=== PATIENT | female | born 1950 | race Caucasian/White ===

== ENCOUNTER 2017-04-30 17:12 | Emergency (ER) | payer MEDICARE, OTHER ==
[~2017-04-30 17:12] MED LIST: Lidocaine 2% with EPINEPHrine 1:100,000 20 ML MDV INFILT ONE
[2017-04-30 17:40] VITALS: BP 126/74
[2017-04-30] MEDS ORDERED: Diphtheria,Pertussis(Acell),Tetanus Vaccine 0.5 ML SDV IM ONE (17:45)
--- NOTE | 2017-04-30 17:53 | EDM.PDOC ---
ED HPI GENERAL MEDICAL PROBLEM - General Chief Complaint: Laceration Stated Complaint: LEFT HAND INJURY Time Seen by Provider: 04/30/17 17:35 Source of Information: Reports: Patient History Limitations: Reports: No Limitations - History of Present Illness INITIAL COMMENTS - FREE TEXT/NARRATIVE: 66 yo female was working at home with a utility knife and accidently cut her left hand resulting in bleeding that spurted from her hand. No numbness noted distal to the wound. Thinks tetanus was about 5 yrs ago. Here with . 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) Left Hand Pain Score (Numeric/FACES): 2 - Related Data Allergies Allergy/AdvReac Type Severity Reaction Status Date / Time No Known Allergies Allergy Verified 04/30/17 17:40 Home Meds: Home Meds Cetirizine [ZyrTEC] 5 mg PO DAILY 06/24/13 [History] Multivitamin with Minerals [Multiple Vitamin] 1 tab PO DAILY 06/24/13 [History] Omeprazole [Omeprazole] 20 mg PO DAILY 06/24/13 [History] Social & Family History - Alcohol Use Days Per Week of Alcohol Use: 0 - Recreational Drug Use Recreational Drug Use: No ED ROS GENERAL - Review of Systems Review Of Systems: See Below Constitutional: Reports: No Symptoms Musculoskeletal: Reports: No Symptoms Skin: Reports: Wound (L hand.) Neurological: Reports: No Symptoms Psychiatric: Reports: No Symptoms ED EXAM, SKIN/RASH Exam: See Below Exam Limited By: No Limitations General Appearance: Alert, WD/WN, No Apparent Distress Peripheral Pulses: 3+: Radial (L) Extremities: Normal Range of Motion, Other (Wound left hand). No: Mottled, Pallor, Redness Neurological: Alert, Oriented, CN II-XII Intact, Normal Cognition, No Motor/ Sensory Deficits Psychiatric: Normal Affect, Normal Mood Skin: Warm, Dry, Normal Color, No Rash, Wound/Incision (0.5 cm linear laceration near the web space of her left hand. Arteriolar bleeding noted. ) Location, Skin: Upper Extremity, Left (web space of left hand. ) Characteristics: Linear Associated features: No: Warmth, Tenderness, Induration, Inflammation Lymphatic: No Adenopathy ED SKIN PROCEDURES - Laceration/Wound Repair Left Posterior Hand Lac/Wound length In cm: 0.5 Appearance: Subcutaneous, Linear, Clean Distal NVT: No Tendon Injury, Other (no neurological impairment, but arteriolar bleeding present.) Anesthetic Type: Local Local Anesthesia - Lidocaine (Xylocaine): 2% with EPI Local Anesthetic Volume: 2cc Skin Prep: Other (surgical scrub) Closed with: Sutures Suture Size: other (5-0) Suture Type: Nylon, Interrupted Drain Placement: No Sterile Dressing Applied: Nurse Tetanus Status Addressed: Yes Complications: No Course - Vital Signs Last Recorded V/S: Last Vital Signs Temp 36.1 C 04/30/17 17:34 Pulse 71 04/30/17 17:34 Resp 14 04/30/17 17:34 BP 126/74 04/30/17 17:34 Pulse Ox 100 04/30/17 17:34 - Orders/Labs/Meds Orders: Active Orders 24 hr Category Date Time Status Vaccines to be Administered [RC] PER UNIT ROUTINE Care 04/30/17 17:45 Active Meds: Medications Discontinued Medications Generic Name Dose Route Start Last Admin Trade Name Hector PRN Reason Stop Dose Admin Diphtheria/Tetanus/Acell Pertussis 0.5 ml 04/30/17 17:45 Adacel IM 04/30/17 17:46 .ONCE ONE Departure - Departure Time of Disposition: 18:00 Disposition: Home, Self-Care 01 Condition: Good Clinical Impression: Laceration of hand Qualifiers: Encounter type: initial encounter Foreign body presence: without foreign body Laterality: left Qualified Code(s): S61.412A - Laceration without foreign body of left hand, initial encounter - Discharge Information Referrals: Alona Jama MD [Primary Care Provider] - Forms: ED Department Discharge Additional Instructions: Leave pressure dressing on for 24 hrs. Keep hand elevated above your heart. Keep wound clean for 3 days. Starting at bedtime tomorrow clean wound twice daily with soap and water. Dry. Apply Bacitracin ointment and a new dressing. Stitches out in the clinic in 9-10 days, call for an appt. Recheck sooner for signs of infection. Use acetaminophen as needed for pain relief. - My Orders Last 24 Hours: My Active Orders 04/30/17 17:45 Vaccines to be Administered [RC] PER UNIT ROUTINE - Assessment/Plan Last 24 Hours: My Active Orders 04/30/17 17:45 Vaccines to be Administered [RC] PER UNIT ROUTINE
== END 2017-04-30 18:00 | disposition home or self-care (01) ==
LOC: FB.ED 17:12
DX: S61.412A Laceration without foreign body of left hand, initial encounter (principal); Z79.899 Other long term (current) drug therapy; W26.0XXA Contact with knife, initial encounter
CPT/HCPCS: 12001; 90471; 90715; 99282; 99283